=== PATIENT | male | born 1965 | race Caucasian/White ===

== ENCOUNTER 2021-06-08 12:10 | Outpatient (CLI) | payer BC | END 2021-06-08 12:11 | disposition home or self-care (01) | LOC: EEG 12:10 | PROVIDERS: ATTEND Nurse Practitioner Acute Care | DX: R56.9 Unspecified convulsions (principal) | CPT/HCPCS: 95816 ==

== ENCOUNTER 2021-10-03 13:03 | Outpatient (CLI) | payer BC | END 2021-10-03 13:04 | disposition home or self-care (01) | LOC: CT 13:03 | PROVIDERS: ATTEND Psychiatry & Neurology Neurology | DX: R56.9 Unspecified convulsions (principal); F07.81 Postconcussional syndrome | CPT/HCPCS: 70450 ==

== ENCOUNTER 2021-11-21 11:33 | Outpatient (CLI) | payer BC ==
[2021-11-21 12:43] LABS: #Basophils 0.1 10x3/uL (0.0-0.2); #Eosinphils 0.2 10x3/uL (0.0-0.5); #Monocytes 0.8 10x3/uL (0.0-1.1); #Neutrophils 3.6 10x3/uL (1.5-8.4); %Basophils 0.9 % (0.0-2.0); %Eosinophils 3.5 % (0.0-6.0); %Monocytes 11.5 % (0.0-10.0); %Neutrophils 54.9 % (40.0-75.0); Hemoglobin 14.4 g/dL (13.5-17.5); Mean Corpuscular HGB CONC 33.8 g/dL (32.0-36.0); Mean Corpuscular Hemoglobin 29.6 pg (27.0-33.0); Mean Corpuscular Volume 87.5 fl (81.2-95.1); Mean Platelet Volume 10.1 fl (7.4-10.4); Platelet Count 261 10x3/uL (150-450); RBC Distribution Width 11.8 % (11.5-14.5); Red Blood Cell (RBC) Count 4.87 10x6/uL (4.32-5.72); White Blood Cell (WBC) Count 6.6 10x3/uL (3.5-10.5)
[2021-11-21 13:08] LABS: Anion Gap 15 mmol/L (10-20); BUN (Urea Nitrogen) 15 mg/dL (8.4-25.7); Calc. Creatinine Clearance 0 mL/min (70-130); Calcium 9.5 mg/dL (7.8-10.44); Carbon Dioxide 23 mmol/L (22-29); Chloride 105 mmol/L (98-107); Glucose 114 mg/dL (70-105); Potassium 4.4 mmol/L (3.5-5.1); Sodium 139 mmol/L (136-145)
[2021-11-22 03:27] LABS: SARS-CoV-2 PCR by NAA Not Detected (NotDetected)
== END 2021-11-21 11:34 | disposition home or self-care (01) ==
LOC: LABBT 11:33
PROVIDERS: ATTEND Orthopaedic Surgery
DX: Z01.818 Encounter for other preprocedural examination (principal); S46.011A Strain of muscle(s) and tendon(s) of the rotator cuff of right shoulder, initial encounter; Z20.822 Contact with and (suspected) exposure to COVID-19
CPT/HCPCS: 80048; 85025; 93005; 93010; U0003; U0005

== ENCOUNTER 2021-11-24 05:47 | Day surgery (SDC) | payer OTHER, BC ==
[2021-11-18 13:44] VITALS: BMI 40.5
[2021-11-24] MEDS ORDERED: Fentanyl 100 MCG/2 ML VIAL ONE (06:58)
[2021-11-24] MEDS ORDERED: Midazolam HCl 2 mg/2 ml Vial ONE (06:58)
[2021-11-24] MEDS ORDERED: Lidocaine 1% w/Epinephrine 1:100K 30 ML VIAL ONE (07:00)
[2021-11-24] MEDS ORDERED: ceFAZolin 2 GM/Dextrose 50 ML IVPB ONE (07:14)
[2021-11-24] MEDS ORDERED: Lidocaine 1% PF 5 ML VIAL ONE (07:46)
[2021-11-24] MEDS ORDERED: Ondansetron PF 4 MG/2 ML Vial ONE ×2 (07:46→09:26)
[2021-11-24] MEDS ORDERED: Rocuronium Bromide 10 MG/ML (10ML VIAL) ONE (07:46)
[2021-11-24] MEDS ORDERED: Ropivacaine 0.5% HCl/PF (150 MG/30 ML VIAL) ONE (07:46)
[2021-11-24] MEDS ORDERED: ePHEDrine 50 MG/ML VIAL ONE (07:46)
[2021-11-24] MEDS ORDERED: PROPOFOL 200 MG/20 ML VIAL ONE (07:46)
[2021-11-24] MEDS ORDERED: PHENYLEPHRINE-NS 100 MCG/ML 10 ML SYRINGE ONE (08:17)
[2021-11-24] MEDS ORDERED: Phenylephrine 10 MG/ML VIAL ONE (08:18)
[2021-11-24] MEDS ORDERED: Zolpidem Tartrate 5 MG TAB PO PRN (08:30)
[2021-11-24] MEDS ORDERED: HYDROcodone/Acetaminophen 5/325 mg Tablet PO PRN ×2 (08:30)
[2021-11-24] MEDS ORDERED: Ropivacaine 0.2% 550 ML 550 ML NERVE BLCK SCH (08:30)
[2021-11-24] MEDS ORDERED: traMADol HCl 50 MG TAB PO PRN ×2 (08:30)
[2021-11-24] MEDS ORDERED: Ketorolac Tromethamine 30 MG/ML VIAL IVP PRN (08:30)
[2021-11-24] MEDS ORDERED: Ondansetron PF 4 MG/2 ML Vial IVP PRN (08:30)
[2021-11-24] MEDS ORDERED: Promethazine HCl 25 MG/ML VIAL IM PRN (08:30)
[2021-11-24] MEDS ORDERED: ePHEDrine Sulfate 50 MG/10 ML VIAL ONE (09:25)
[2021-11-24] MEDS ORDERED: Glycopyrrolate 0.2 MG/ML 5 ML SYRINGE ONE (09:25)
[2021-11-24] MEDS ORDERED: Ketorolac Tromethamine 30 MG/ML VIAL ONE (11:03)
== END 2021-11-24 12:45 | disposition home or self-care (01) ==
LOC: SDC 05:47
PROVIDERS: ATTEND Orthopaedic Surgery
PROC: 0LS30ZZ Reposition Right Upper Arm Tendon, Open Approach (ICD-10-PCS; principal; 2021-11-24)
PROC: 0LQ14ZZ Repair Right Shoulder Tendon, Percutaneous Endoscopic Approach (ICD-10-PCS; principal; 2021-11-24)
PROC: 3E0T3BZ Introduction of Anesthetic Agent into Peripheral Nerves and Plexi, Percutaneous Approach (ICD-10-PCS; principal; 2021-11-24)
PROC: 0RHJ04Z Insertion of Internal Fixation Device into Right Shoulder Joint, Open Approach (ICD-10-PCS; principal; 2021-11-24)
DX: S46.011A Strain of muscle(s) and tendon(s) of the rotator cuff of right shoulder, initial encounter (principal); S43.431A Superior glenoid labrum lesion of right shoulder, initial encounter; M75.21 Bicipital tendinitis, right shoulder; Z79.82 Long term (current) use of aspirin; Z79.899 Other long term (current) drug therapy; Z91.018 Allergy to other foods; V89.2XXA Person injured in unspecified motor-vehicle accident, traffic, initial encounter
CPT/HCPCS: A4306; C1713; J0690; J1885; J2250; J2370; J2405; J2704; J2795; J3010; J3490